=== PATIENT | male | born 1995 | race Caucasian/White ===

== ENCOUNTER → 2017-10-19 | Outpatient (REF) ==
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
== END ==
LOC: RAD 19:12
PROVIDERS: ATTEND Nurse Practitioner
DX: S99.921A Unspecified injury of right foot, initial encounter (principal); X58.XXXA Exposure to other specified factors, initial encounter